=== PATIENT | female | born 1990 | race Caucasian/White ===

== ENCOUNTER 2018-01-29 21:28 | Inpatient (IN) | payer OTHER ==
[~2018-01-29] VITALS: Ht 157.5 cm; Wt 43.0 kg
[2018-01-29] VITALS (8 sets, daily range): BP systolic 79–180; BP diastolic 47–81; PULSE 72–95; RESP 18–24; TEMP 97.9–98.9; O2SAT 85–100
[~2018-01-29 21:28] MED LIST: DEXAMETHASONE SOD PHOS 4 MG/ML VIAL IV ONE; GLYCOPYRROLATE 1 MG/5 ML SYRINGE IV PUSH ONE; KETOROLAC TROMETHAMINE 30 MG/ML (IVP) VIAL IV PUSH ONE; LACTATED RINGER'S 1000 ML INJ 2,000 ML IV ONE; LIDOCAINE HCL 1% PF 5 ML SYRINGE OTHER ONE; NEOSTIGMINE 5 MG/5 ML SYRINGE IV PUSH ONE; ONDANSETRON HCL 4 MG/2 ML VIAL IV PUSH ONE; PHENYLEPH/NS 1000 MCG/10 ML SYR IV ONE; PROPOFOL 200 MG/20 ML AMP IV ONE; ROCURONIUM INJ 50 MG/5 ML SYRINGE IV PUSH ONE; SUCCINYLCHOLINE CHLORIDE 100 MG/5 ML SYRINGE IV PUSH ONE; ceFAZolin INJ 1,000 MG VIAL IV ONE
[2018-01-29] MEDS ORDERED: SODIUM CHLOR 0.9% 1000 ML INJ 1,000 ML IV ONE ×2 (22:30)
[2018-01-29 23:01] LABS: AUTOMATED NEUTROPHIL # 6.7 TH/MM3 (1.8-7.7); BASOPHIL % 0.3 % (0.0-2.0); EOSINOPHIL # 0.3 TH/MM3 (0-0.4); EOSINOPHIL % 3.1 % (0.0-4.0); HEMATOCRIT 23.9 % (35.0-46.0); HEMOGLOBIN 8.2 GM/DL (11.6-15.3); LYMPH % 16.4 % (9.0-44.0); LYMPHOCYTE # 1.5 TH/MM3 (1.0-4.8); MEAN CELL VOLUME 83.7 FL (80.0-100.0); MEAN CORPUSCULAR HEMOGLOBIN 28.7 PG (27.0-34.0); MEAN CORPUSCULAR HGB CONC 34.2 % (32.0-36.0); MEAN PLATELET VOLUME 9.7 FL (7.0-11.0); MONO % 4.3 % (0.0-8.0); MONOCYTE # 0.4 TH/MM3 (0-0.9); NEUT % 75.9 % (16.0-70.0); PLATELET COUNT 181 TH/MM3 (150-450); RED BLOOD COUNT 2.85 MIL/MM3 (4.00-5.30); RED CELL DISTRIBUTION WIDTH 14.3 % (11.6-17.2); WHITE BLOOD COUNT 8.9 TH/MM3 (4.0-11.0)
--- NOTE | 2018-01-29 23:16 | PD ---
HPI Chief Complaint: Abdominal Pain Time Seen by Provider: 22:26 Travel History International Travel<30 days: No Contact w/Intl Traveler<30days: No Traveled to known affect area: No History of Present Illness HPI 27-year-old woman, history is a little bit limited she reports in via EMS for syncope and abdominal pain. By nursing report she is early . She had an ultrasound done about a week or so ago in the emergency department where she was having pain. She reports they could not see the and told her she may have a tubal . They want her return in 2 days proceeding go back. She was feeling better until today when this pain started. She has diffuse abdominal pain at this time. She feels generally unwell. No other complaints. History Past Medical History Narrative Medical 3 previous pregnancies, history of IVDU Tetanus Vaccination: Unknown Influenza Vaccination: No LMP: 3 MONTHS AGO : 4 Para: 3 Social History Alcohol Use: Yes (OCCAS) Tobacco Use: No Allergies-Medications (Allergen,Severity, Reaction): Coded Allergies: No Known Allergies (Unverified , 01/29/18) Reported Meds & Prescriptions Reported Meds & Active Scripts Active No Active Prescriptions or Reported Medications Review of Systems Except as stated in HPI: all other systems reviewed are Neg Physical Exam Narrative GENERAL: Pale ill appearing 27-year-old woman, SKIN: Clammy and pale. HEAD: Atraumatic. Normocephalic. EYES: Pupils equal and round. No scleral icterus. No injection or drainage. ENT: No nasal bleeding or discharge. Mucous membranes pink and moist. NECK: Trachea midline. No JVD. CARDIOVASCULAR: Heart rate slow but rapid. RESPIRATORY: No accessory muscle use. Clear to auscultation. Breath sounds equal bilaterally. GASTROINTESTINAL: Abdomen distended, diffusely tender with peritonitis. MUSCULOSKELETAL: No obvious deformities. No edema. NEUROLOGICAL: Awake and alert. No obvious cranial nerve deficits. Motor grossly within normal limits. Normal speech. PSYCHIATRIC: Appropriate mood and affect; insight and judgment normal. Data Data Last Documented VS Vital Signs Date Time Temp Pulse Resp B/P (MAP) Pulse Ox O2 Delivery O2 Flow Rate FiO2 01/29/18 23:02 86 20 96/65 (75) 97 Room Air 01/29/18 21:51 97.9 Orders Orders Complete Blood Count With Diff (01/29/18 22:01) Comprehensive Metabolic Panel (01/29/18 22:01) Beta Hcg (Quant/Titer) (01/29/18 22:01) Urinalysis - C+S If Indicated (01/29/18 22:01) Iv Access Insert/Monitor (01/29/18 22:01) Type And Screen (01/29/18 22:26) Red Blood Cells (Rbc) (01/29/18 22:26) Ed Poc Ultrasound (01/29/18 ) Sodium Chlor 0.9% 1000 Ml Inj (Ns 1000 M (01/29/18 22:30) Sodium Chlor 0.9% 1000 Ml Inj (Ns 1000 M (01/29/18 22:30) Fentanyl Inj (Fentanyl Inj) (01/29/18 22:45) Chest, Single Ap (01/29/18 ) Admit Order (Ed Use Only) (01/29/18 ) Labs Laboratory Tests Test 01/29/18 22:31 White Blood Count 8.9 TH/MM3 Red Blood Count 2.85 MIL/MM3 Hemoglobin 8.2 GM/DL Hematocrit 23.9 % Mean Corpuscular Volume 83.7 FL Mean Corpuscular Hemoglobin 28.7 PG Mean Corpuscular Hemoglobin Concent 34.2 % Red Cell Distribution Width 14.3 % Platelet Count 181 TH/MM3 Mean Platelet Volume 9.7 FL Neutrophils (%) (Auto) 75.9 % Lymphocytes (%) (Auto) 16.4 % Monocytes (%) (Auto) 4.3 % Eosinophils (%) (Auto) 3.1 % Basophils (%) (Auto) 0.3 % Neutrophils # (Auto) 6.7 TH/MM3 Lymphocytes # (Auto) 1.5 TH/MM3 Monocytes # (Auto) 0.4 TH/MM3 Eosinophils # (Auto) 0.3 TH/MM3 Basophils # (Auto) 0.0 TH/MM3 CBC Comment DIFF FINAL Differential Comment MDM Medical Decision Making Medical Screen Exam Complete: Yes Emergency Medical Condition: Yes Differential Diagnosis Ruptured ectopic, mesenteric ischemia, appendicitis, UTI or sepsis, perforated ulcer, other Narrative Course Medical decision making Called by nursing staff to room due to worsening low blood pressure. My initial assessment patient was ill-appearing, clear tender abdomen. History suggestive of ruptured ectopic. Bedside ultrasound confirms fluid in the abdomen. Patient hypotensive on initial assessment. Difficult IV access due to history of IV drug use. One access initially started. IV fluids ordered and hung. Labs were sent. Called for emergency release blood after bedside ultrasound was performed. Was a large bore central venous catheter for access and resuscitation. 2 units of emergency release blood were started. I called and spoke to the OB hospitalist who came in immediately to the bedside with Dr. Dupree. They will take patient to the operating room. Critical Care Narrative Aggregate critical care time was 40 minutes. Time to perform other separately billable procedures was not included in the critical care time. My time did not include minutes spent treating any other patients simultaneously or on activities that did not directly contribute to the patient's treatment. The services I provided to this patient were to treat and/or prevent clinically significant deterioration that could result in: , hemorrhagic shock, unrecognized ectopic , other. I provided critical care services requiring my management, as noted below: Chart data review, documentation time, medication orders and management, vital sign assessments/reviewing monitor data, ordering and reviewing lab tests, ordering and interpreting/reviewing x-rays and diagnostic studies, care of the patient and discussion of the patient with the admitting physicians. Procedures Procedure Narrative Central line: Emergent central line placed. Procedure was explained to patient and assent was obtained. Areas prepped with chlorhexidine. Using sterile technique and real-time ultrasound guidance, Seldinger technique, a large bore central line was placed in the right IJ without difficulty. Patient tolerated well. Good blood return. Chest x-ray pending. [id number] ultrasound: Focused transabdominal chest performed by me to evaluate for presence of peritoneal fluid. Positive with a large amount of intraperitoneal fluid. Diagnosis Primary Impression: Ruptured ectopic Additional Impression: Hemorrhagic shock Admitting Information Admitting Physician Requests: Admit Scripts No Active Prescriptions or Reported Howies Andrzej Garcia MD Jan 29, 2018 23:16
--- NOTE | 2018-01-29 23:18 | RADRPT ---
EXAM DATE: 01/29/2018 11:15 PM EDT AGE/SEX: 27 years / Female INDICATIONS: Post procedure, and pre-op. Please evaluate for pneumonia, pneumothorax, or any other c ommunicable disease. CLINICAL DATA: This is the patient's initial encounter. Patient reports that signs and symptoms have been present for 1 day and indicates a pain score of Nonresponsive. MEDICAL/SURGICAL HISTORY: Non-responsive. Non-responsive. COMPARISON: No prior exams available for comparison. FINDINGS: A single AP supine portable view the chest was obtained and demonstrates a right internal jugular jesus tral venous line in place. There are no confluent infiltrates or effusions. The heart and mediastinal structures are within normal limits. The soft tissues and bony thorax are unremarkable. CONCLUSION: No acute cardiopulmonary disease. Electronically signed by: Frank Gee MD 01/29/2018 11:16 PM EDT
--- NOTE | 2018-01-29 23:20 | HHI.HP ---
HPI Chief Complaint Abdominal pain, emergent consultation for suspected ruptured ectopic Date Seen: Jan 29, 2018 Time Seen: 23:13 Travel History International Travel<30 Days: No Contact w/Intl Traveler<30Days: No Known Affected Area: No History of Present Illness HPI 27-year-old female who presented to the emergency room with a complaint of abdominal pain and concern that she has an ectopic . She reports having been seen in the [place] area 1 week ago for abdominal pain and was told she had a of undetermined location. She was told to follow-up for additional testing in 2 days but she failed to do this. She began having severe abdominal pain earlier this evening. Initial evaluation in the emergency room demonstrated a hypotensive patient with blood pressure 70/30. [id number] ultrasound demonstrated what appeared to be massive hemoperitoneum and a fast examination confirmed intraperitoneal blood. History Past Medical History Narrative Medical History of cocaine abuse with her last use reported as July 2017 Obstetric History Obstetric History 3 prior C-sections Past Surgical History Narrative Surgical 3 prior C-sections, appendectomy Family History Family History: Negative Social History Alcohol Use: Yes Tobacco Use: No Substance Abuse: Yes (History of cocaine use) Allergies-Medications (Allergen,Severity, Reaction): Coded Allergies: No Known Allergies (Unverified , 01/29/18) Home Meds No Active Prescriptions or Reported Meds Review of Systems HENT: Lightheadedness Gastrointestinal: Abdominal Pain Physical Exam Vital Signs Date Time Temp Pulse Resp B/P (MAP) Pulse Ox O2 Delivery O2 Flow Rate FiO2 01/29/18 23:02 86 20 96/65 (75) 97 Room Air 01/29/18 22:59 18 96/63 100 01/29/18 22:56 18 93/55 01/29/18 22:10 77 20 79/52 (61) 93 Room Air 01/29/18 21:51 97.9 72 19 83/47 (59) 99 Narrative GENERAL: Thin white female complaining of abdominal pain SKIN: Cool and dry. HEAD: Normocephalic and atraumatic. EYES: No scleral icterus. No injection or drainage. ENT: No nasal drainage noted. Mucous membranes pink. Airway patent. NECK: Supple, trachea midline. No JVD. CARDIOVASCULAR: Regular rate and rhythm without murmurs, gallops, or rubs. RESPIRATORY: Breath sounds equal bilaterally. No accessory muscle use. ABDOMEN/GI: Abdomen is rigid with guarding and rebound, [id number] ultrasound demonstrates a large volume of free fluid in the abdomen Gravid to [-] weeks size Fundal Height: [-] GENITOURINARY: EXTREMITIES: No cyanosis or edema, pale nailbeds BACK: Nontender without obvious deformity. No CVA tenderness. NEUROLOGICAL: Awake and alert. Motor and sensory grossly within normal limits. Five out of 5 muscle strength in all muscle groups. Normal speech. Caprini VTE Risk Assessment Caprini VTE Risk Assessment: No/Low Risk (score <= 1) VTE Pharm Contraindication: Hemorrhage Caprini Risk Assessment Model Point Value = 1 Point Value = 2 Point Value = 3 Point Value = 5 Age 41-60 Minor surgery BMI > 25 kg/m2 Swollen legs Varicose veins or History of unexplained or recurrent spontaneous Oral contraceptives or hormone replacement Sepsis (< 1 month) Serious lung disease, including pneumonia (< 1 month) Abnormal pulmonary function Acute myocardial infarction Congestive heart failure (< 1 month) History of inflammatory bowel disease Medical patient at bed rest Age 61-74 Arthroscopic surgery Major open surgery (> 45 min) Laparoscopic surgery (> 45 min) Malignancy Confined to bed (> 72 hours) Immobilizing plaster cast Central venous access Age >= 75 History of VTE Family history of VTE Factor V Leiden Prothrombin [id number] Lupus anticoagulant Anticardiolipin antibodies Elevated serum homocysteine Heparin-induced thrombocytopenia Other congenital or acquired thrombophilia Stroke (< 1 month) Elective arthroplasty Hip, pelvis, or leg fracture Acute spinal cord injury (< 1 month) Prophylaxis Regimen Total Risk Factor Score Risk Level Prophylaxis Regimen 0-1 Low Early ambulation 2 Moderate Order ONE of the following: *Sequential Compression Device (SCD) *Heparin 5000 units SQ BID 3-4 Higher Order ONE of the following medications: *Heparin 5000 units SQ TID *Enoxaparin/Lovenox 40 mg SQ daily (WT < 150 kg, CrCl > 30 mL/min) *Enoxaparin/Lovenox 30 mg SQ daily (WT < 150 kg, CrCl > 10-29 mL/min) *Enoxaparin/Lovenox 30 mg SQ BID (WT < 150 kg, CrCl > 30 mL/min) AND/OR *Sequential Compression Device (SCD) 5 or more Highest Order ONE of the following medications: *Heparin 5000 units SQ TID (Preferred with Epidurals) *Enoxaparin/Lovenox 40 mg SQ daily (WT < 150 kg, CrCl > 30 mL/min) *Enoxaparin/Lovenox 30 mg SQ daily (WT < 150 kg, CrCl > 10-29 mL/min) *Enoxaparin/Lovenox 30 mg SQ BID (WT < 150 kg, CrCl > 30 mL/min) AND *Sequential Compression Device (SCD) Data Data Vital Signs Reviewed: Yes Orders Orders Complete Blood Count With Diff (01/29/18 22:01) Comprehensive Metabolic Panel (01/29/18 22:01) Beta Hcg (Quant/Titer) (01/29/18 22:01) Urinalysis - C+S If Indicated (01/29/18 22:01) Iv Access Insert/Monitor (01/29/18 22:01) Type And Screen (01/29/18 22:26) Red Blood Cells (Rbc) (01/29/18 22:26) Ed Poc Ultrasound (01/29/18 ) Sodium Chlor 0.9% 1000 Ml Inj (Ns 1000 M (01/29/18 22:30) Sodium Chlor 0.9% 1000 Ml Inj (Ns 1000 M (01/29/18 22:30) Fentanyl Inj (Fentanyl Inj) (01/29/18 22:45) Chest, Single Ap (01/29/18 ) Admit Order (Ed Use Only) (01/29/18 ) Labs Laboratory Tests Test 01/29/18 22:31 White Blood Count 8.9 Red Blood Count 2.85 Hemoglobin 8.2 Hematocrit 23.9 Mean Corpuscular Volume 83.7 Mean Corpuscular Hemoglobin 28.7 Mean Corpuscular Hemoglobin Concent 34.2 Red Cell Distribution Width 14.3 Platelet Count 181 Mean Platelet Volume 9.7 Neutrophils (%) (Auto) 75.9 Lymphocytes (%) (Auto) 16.4 Monocytes (%) (Auto) 4.3 Eosinophils (%) (Auto) 3.1 Basophils (%) (Auto) 0.3 Neutrophils # (Auto) 6.7 Lymphocytes # (Auto) 1.5 Monocytes # (Auto) 0.4 Eosinophils # (Auto) 0.3 Basophils # (Auto) 0.0 CBC Comment DIFF FINAL Differential Comment Assessment/Plan Assessment and Plan Assessment: Likely ruptured ectopic with hypovolemia Plan: Emergency release transfusion of O- blood. Consent was obtained for laparotomy and treatment as indicated for suspected ruptured ectopic . Andrzej Camacho MD Jan 29, 2018 23:20
[2018-01-29] MEDS ORDERED: KETAMINE HCL 50 MG/5 ML SYRINGE ONE (23:27)
[2018-01-29 23:37] LABS: ALBUMIN 2.7 GM/DL (3.4-5.0); ALT (GPT) 26 U/L (10-53); AST (GOT) 10 U/L (15-37); BICARBONATE 23.4 MEQ/L (21.0-32.0); BLOOD UREA NITROGEN 11 MG/DL (7-18); CALCIUM 8.1 MG/DL (8.5-10.1); CHLORIDE 105 MEQ/L (98-107); CREATININE 0.68 MG/DL (0.50-1.00); GLOMERULAR FILTRATION RATE 104 ML/MIN (>89); GLUCOSE,RANDOM 120 MG/DL (74-106); SODIUM (NA) 139 MEQ/L (136-145)
[2018-01-29 23:55] LABS: ALKALINE PHOSPHATASE 46 U/L (45-117); TOTAL BILIRUBIN ADULT 0.2 MG/DL (0.2-1.0); TOTAL PROTEIN 6.1 GM/DL (6.4-8.2)
[2018-01-30] MEDS ORDERED: fentaNYL CITRATE 250 MCG/5 ML AMP ONE (00:12)
[2018-01-30] MEDS ORDERED: ACETAMINOPHEN 1000 MG/100 ML 100 ML IV ONE (00:12)
[2018-01-30 00:42] LABS: AUTOMATED NEUTROPHIL # 8.3 TH/MM3 (1.8-7.7); BASOPHIL % 0.1 % (0.0-2.0); EOSINOPHIL % 0.4 % (0.0-4.0); HEMATOCRIT 27.6 % (35.0-46.0); HEMOGLOBIN 9.2 GM/DL (11.6-15.3); LYMPH % 7.2 % (9.0-44.0); LYMPHOCYTE # 0.7 TH/MM3 (1.0-4.8); MEAN CELL VOLUME 85.5 FL (80.0-100.0); MEAN CORPUSCULAR HEMOGLOBIN 28.4 PG (27.0-34.0); MEAN CORPUSCULAR HGB CONC 33.2 % (32.0-36.0); MEAN PLATELET VOLUME 8.8 FL (7.0-11.0); MONO % 3.6 % (0.0-8.0); MONOCYTE # 0.3 TH/MM3 (0-0.9); NEUT % 88.7 % (16.0-70.0); PLATELET COUNT 160 TH/MM3 (150-450); RED BLOOD COUNT 3.23 MIL/MM3 (4.00-5.30); WHITE BLOOD COUNT 9.4 TH/MM3 (4.0-11.0)
[2018-01-30] MEDS ORDERED: DO NOT ADM ANY ANTICOAGULANT DRUGS PRN (01:00)
[2018-01-30] MEDS ORDERED: LORazepam 2 MG/ML VIAL IV SCH (01:00)
[2018-01-30] MEDS ORDERED: SODIUM CHLORIDE 0.9% FLUSH 10 ML FLUSH IV FLUSH PRN (01:15)
[2018-01-30] MEDS ORDERED: LORazepam 2 MG/ML VIAL IV PRN (01:15)
[2018-01-30] MEDS ORDERED: diphenhydrAMINE HCL 25 MG CAP PO PRN (01:15)
[2018-01-30] MEDS ORDERED: LORazepam 2 MG/ML VIAL ONE (01:26)
[2018-01-30 03:03] VITALS: BP 97/58; PULSE 73; RESP 18; TEMP 98.1; O2SAT 97
[2018-01-30 08:00] VITALS: BP 99/58; PULSE 77; RESP 20; TEMP 98.6; O2SAT 97
[2018-01-30] MEDS: SODIUM CHLORIDE 0.9% FLUSH 10 ML FLUSH IV FLUSH SCH ×2 (09:00→20:15)
--- NOTE | 2018-01-30 10:21 | MP ---
cc: Sanford Mathew MD DATE OF OPERATION: PROCEDURE PERFORMED: Laparotomy with partial salpingectomy, left fallopian tube for a left ectopic . PREOPERATIVE DIAGNOSIS: Hemorrhagic shock, ruptured ectopic. POSTOPERATIVE DIAGNOSIS: Hemorrhagic shock, ruptured ectopic, including a left ectopic . SURGEON: Sanford Mathew MD ANESTHESIA: General. ESTIMATED BLOOD LOSS: 1000 mL of a hemoperitoneum, 100 mL blood loss in the operating room. COMPLICATIONS: None. FINDINGS: The patient had a left fimbriated end ectopic and bowel adhesions and uterus, which was completely stuck to the anterior abdominal wall. PROCEDURE IN DETAIL: After informed consent, the patient was taken to the operating room where she was placed under general anesthesia, placed in supine position. Abdomen was prepped and draped in normal sterile fashion. Bladder was drained with a Bravo catheter. Once a timeout was taken for the laparotomy and we decided we needed to evaluate the pelvis with a laparoscope, we placed laparoscope through the umbilicus. Once we evaluated the umbilicus, we noted the adhesions from either the ruptured appendix that she had previously had or from 3 previous C-sections. She had a uterus which was stuck to the anterior abdominal wall, omentum which was adherent all the way down to small bowel, was adherent to the anterior abdominal wall. At this point, we performed a laparotomy going through the old Pfannenstiel skin incision, carefully dissecting through the fascia, through the rectus muscle and down to a thickened peritoneum. We then entered the abdomen carefully and was right at the fundus of the uterus, which was adherent up on the anterior abdominal wall, completely from the fundus to the cervix. A Bravo bulb could be felt below the cervix intra-abdominally. The small bowel adhesions were taken down along with the omental adhesions. At this point, there was an ectopic in the omentum. This is where it was adherent to the fimbriated end and boarded out of the end of the fallopian tube. The fallopian tube was actively bleeding despite pressure. Despite cautery, we could not control the bleeding and the decision was made to remove the left distal portion of the tube. This was done with a Ayanna clamp. Good hemostasis was achieved and all bright red bleeding stopped. At this point, we had about 1000 mL of blood in the abdomen, it was free. We had to remove all of that blood from the abdomen, carefully removing blood and cleaning out the posterior cul-de-sac. Survey of the right side revealed a normal fallopian tube and ovary, although there were some adhesions. The left fallopian tube was partially removed and the ovary was stuck to the anterior abdominal wall, along with the uterus. This was partially taken down. The loop of small bowel was stuck to the ovary. This was taken down also. The adhesions of the omentum and the bowel was taken down off the anterior abdominal wall. Good hemostasis was achieved in all dissection. The omentum was not bleeding with the ectopic removed from the omentum with a small amount of partial omentectomy. Good hemostasis was achieved. All lap and instruments were removed from the abdomen after the abdomen was copiously irrigated. At this point, the rectus muscle had to be brought back together slightly. The fascia was closed with 0 Vicryl suture. The skin was closed with 4-0 Monocryl. The patient tolerated the procedure well. She was taken to recovery room in stable condition. Lap and instrument counts were reported as correct. FINAL DIAGNOSES: Left ectopic in the fimbriated end that aborted out and was in the omentum. Active bleeding from the fimbriated end required a partial salpingectomy. MD YONAS Lehman/BARNDT , 01:14 AM , 10:19 AM
[2018-01-30 12:00] VITALS: BP 97/57; PULSE 72; RESP 18; TEMP 98.4; O2SAT 99
[2018-01-30 12:17] LABS: AUTOMATED NEUTROPHIL # 6.9 TH/MM3 (1.8-7.7); BASOPHIL % 0.1 % (0.0-2.0); HEMATOCRIT 28.8 % (35.0-46.0); HEMOGLOBIN 9.7 GM/DL (11.6-15.3); LYMPH % 8.6 % (9.0-44.0); LYMPHOCYTE # 0.7 TH/MM3 (1.0-4.8); MEAN CELL VOLUME 82.9 FL (80.0-100.0); MEAN CORPUSCULAR HEMOGLOBIN 28.1 PG (27.0-34.0); MEAN CORPUSCULAR HGB CONC 33.9 % (32.0-36.0); MEAN PLATELET VOLUME 9.4 FL (7.0-11.0); MONOCYTE # 0.5 TH/MM3 (0-0.9); NEUT % 85.3 % (16.0-70.0); PLATELET COUNT 167 TH/MM3 (150-450); RED BLOOD COUNT 3.47 MIL/MM3 (4.00-5.30); RED CELL DISTRIBUTION WIDTH 14.6 % (11.6-17.2); WHITE BLOOD COUNT 8.1 TH/MM3 (4.0-11.0)
--- NOTE | 2018-01-30 13:22 | HHI.OB ---
Subjective Post Operative Day: 1 Remarks doing well Objective Vitals/I&O Vital Signs Date Time Temp Pulse Resp B/P (MAP) Pulse Ox O2 Delivery O2 Flow Rate FiO2 01/30/18 08:00 98.6 77 20 99/58 (72) 97 01/30/18 03:03 98.1 73 18 97/58 (71) 97 01/30/18 02:30 73 15 96/57 (70) 96 Room Air 01/30/18 02:15 73 14 101/60 (74) 96 Room Air 01/30/18 02:00 98.0 69 15 98/62 (74) 96 Room Air 01/30/18 01:45 71 13 103/63 (76) 97 Room Air 01/30/18 01:30 75 12 103/65 (78) 99 Room Air 01/30/18 01:15 92 14 112/77 (89) 98 Room Air 01/30/18 01:06 98.4 88 14 117/62 (80) 97 Room Air 01/29/18 23:16 98.4 91 20 153/69 100 01/29/18 23:15 89 20 153/69 (97) 100 Room Air 01/29/18 23:02 86 20 96/65 (75) 97 Room Air 01/29/18 22:59 18 96/63 100 01/29/18 22:56 18 93/55 01/29/18 22:10 77 20 79/52 (61) 93 Room Air 01/29/18 21:51 97.9 72 19 83/47 (59) 99 01/29/18 20:00 98.9 95 24 180/81 (114) 85 Intake & Output 01/30/18 01/30/18 07:00 19:00 Intake Total 3050 ml Output Total 2200 ml Balance 850 ml Intake IV Total 2000 ml Packed Cells 800 ml Blood Product IV Normal Saline Flush 250 ml Output Urine Total 1200 ml Estimated Blood Loss 1000 ml Result Diagram: 01/30/18 1108 01/29/182230 Objective Remarks GENERAL: Well-nourished, well-developed patient. CARDIOVASCULAR: Regular rate and rhythm without murmurs, gallops, or rubs. RESPIRATORY: Breath sounds equal bilaterally. No accessory muscle use. ABDOMEN/GI: Abdomen soft, non-tender, bowel sounds present. Incision: Clean, dry and intact. Fundus: Firm, non-tender at umbilicus. GENITOURINARY: Light to moderate bleeding. EXTREMITIES: No cyanosis or edema, non-tender, without signs of DVT. Medications and IVs Current Medications Medications (Trade) Dose Ordered Sig/Val Route Start Time Stop Time Status Last Admin (NS Flush) 2 ml UNSCH PRN IV FLUSH 01/30/18 01:15 (NS Flush) 2 ml BID IV FLUSH 01/30/18 09:00 (Percocet 5-325 Mg) 1 tab Q4H PRN PO 01/30/18 01:15 (Percocet 5-325 Mg) 2 tab Q4H PRN PO 01/30/18 01:15 (Dilaudid Pf Inj) 1 mg Q4H PRN IV 01/30/18 01:15 (Benadryl) 25 mg Q6H PRN PO 01/30/18 01:15 (Zofran Odt) 4 mg Q6H PRN PO 01/30/18 01:15 ([facility] [place] [facility] [place] ALL NURSING DEPARTME... UNSCH PRN .XX 01/30/18 01:00 01/31/18 00:59 Assessment/Plan Problem List: (1) Ruptured ectopic ICD Codes: O00.90 - Unspecified ectopic without intrauterine Status: Acute Assessment and Plan post op. Sanford Mathew MD Jan 30, 2018 13:22
[2018-01-30] MEDS: oxyCODONE/ACETAMINOPHEN 5 MG/325 MG TAB PO PRN ×2 (13:44→20:15)
[2018-01-30 16:00] VITALS: BP 111/62; PULSE 85; RESP 20; TEMP 99.2; O2SAT 97
[2018-01-30] MEDS: HYDROmorphone HCL PF 2 MG/ML VIAL IV PRN (16:29)
[2018-01-30 20:00] VITALS: BP 103/57; PULSE 90; RESP 18; TEMP 98.6; O2SAT 98
[2018-01-31] VITALS: BP 100/56; PULSE 74; RESP 18; TEMP 99; O2SAT 98
[2018-01-31] MEDS: oxyCODONE/ACETAMINOPHEN 5 MG/325 MG TAB PO PRN ×4 (02:12→23:08)
[2018-01-31 08:00] VITALS: BP 104/68; PULSE 89; RESP 15; TEMP 98.5; O2SAT 98
[2018-01-31] MEDS: SODIUM CHLORIDE 0.9% FLUSH 10 ML FLUSH IV FLUSH SCH ×2 (09:04→20:51)
[2018-01-31] MEDS: HYDROmorphone HCL PF 2 MG/ML VIAL IV PRN ×2 (10:19→15:34)
[2018-01-31 11:30] VITALS: BP 116/68; PULSE 75; RESP 15; TEMP 97.7; O2SAT 98
[2018-01-31] MEDS: ONDANSETRON ODT 4 MG TAB PO PRN (13:41)
--- NOTE | 2018-01-31 17:47 | HHI.OB ---
Subjective Post Operative Day: 2 Remarks doing well. Voiding and ambulating but not passing flatus or BM Objective Vitals/I&O Vital Signs Date Time Temp Pulse Resp B/P (MAP) Pulse Ox O2 Delivery O2 Flow Rate FiO2 01/31/18 00:00 99.0 74 18 100/56 (71) 98 01/30/18 20:00 98.6 90 18 103/57 (72) 98 01/30/18 20:00 98.6 90 18 103/57 (72) 98 Intake & Output 01/31/18 01/31/18 07:00 19:00 Intake Total 360 ml Output Total 875 ml Balance -515 ml Intake Oral 360 ml Output Urine Total 875 ml Stool Total 0 ml Result Diagram: 01/30/18 1108 01/29/181 Objective Remarks GENERAL: Well-nourished, well-developed patient. CARDIOVASCULAR: Regular rate and rhythm without murmurs, gallops, or rubs. RESPIRATORY: Breath sounds equal bilaterally. No accessory muscle use. ABDOMEN/GI: Abdomen soft, non-tender, bowel sounds present. Incision: Clean, dry and intact. Fundus: Firm, non-tender at umbilicus. GENITOURINARY: Light to moderate bleeding. EXTREMITIES: No cyanosis or edema, non-tender, without signs of DVT. Medications and IVs Current Medications Medications (Trade) Dose Ordered Sig/Val Route Start Time Stop Time Status Last Admin (NS Flush) 2 ml UNSCH PRN IV FLUSH 01/30/18 01:15 (NS Flush) 2 ml BID IV FLUSH 01/30/18 09:00 01/31/18 09:04 (Percocet 5-325 Mg) 1 tab Q4H PRN PO 01/30/18 01:15 01/31/18 13:42 (Percocet 5-325 Mg) 2 tab Q4H PRN PO 01/30/18 01:15 01/31/18 09:01 (Dilaudid Pf Inj) 1 mg Q4H PRN IV 01/30/18 01:15 01/31/18 15:34 (Benadryl) 25 mg Q6H PRN PO 01/30/18 01:15 (Zofran Odt) 4 mg Q6H PRN PO 01/30/18 01:15 01/31/18 13:41 Assessment/Plan Problem List: (1) Ruptured ectopic ICD Codes: O00.90 - Unspecified ectopic without intrauterine Status: Acute Assessment and Plan post op. faint BS today regular diet when passing flatus, She will probably DC in AM Sanford Mathew MD Jan 31, 2018 17:47
[2018-01-31 19:28] VITALS: BP 117/82; PULSE 87; RESP 18; TEMP 97.9; O2SAT 97
[2018-01-31 23:10] VITALS: BP 124/66; PULSE 86; RESP 18; TEMP 97.6; O2SAT 100
[2018-02-01] MEDS: HYDROmorphone HCL PF 2 MG/ML VIAL IV PRN ×3 (02:05→14:37)
[2018-02-01 04:43] VITALS: BP 103/74; PULSE 74; RESP 18; TEMP 98; O2SAT 100
[2018-02-01] MEDS: oxyCODONE/ACETAMINOPHEN 5 MG/325 MG TAB PO PRN ×3 (06:25→20:33)
[2018-02-01] MEDS ORDERED: OXYC1TAB63 PO (07:25)
[2018-02-01 08:00] VITALS: BP 99/58; PULSE 67; RESP 18; TEMP 97.9; O2SAT 95
[2018-02-01] MEDS: SODIUM CHLORIDE 0.9% FLUSH 10 ML FLUSH IV FLUSH SCH ×2 (08:10→20:34)
--- NOTE | 2018-02-01 09:52 | HHI.OB ---
Subjective Post Operative Day: 3 Remarks doing well, no flatus and tolerating clears Objective Vitals/I&O Vital Signs Date Time Temp Pulse Resp B/P (MAP) Pulse Ox O2 Delivery O2 Flow Rate FiO2 02/01/18 08:00 97.9 67 18 99/58 (72) 95 02/01/18 04:43 98.0 74 18 103/74 (84) 100 01/31/18 23:10 97.6 86 18 124/66 (85) 100 01/31/18 19:28 97.9 87 18 117/82 (94) 97 01/31/18 11:30 97.7 75 15 116/68 (84) 98 Intake & Output 02/01/18 02/01/18 07:00 19:00 Intake Total 360 ml Balance 360 ml Intake Oral 360 ml # Voids 2 # Bowel Movements 0 Result Diagram: 01/30/18 1108 01/29/18 7131 Objective Remarks GENERAL: Well-nourished, well-developed patient. CARDIOVASCULAR: Regular rate and rhythm without murmurs, gallops, or rubs. RESPIRATORY: Breath sounds equal bilaterally. No accessory muscle use. ABDOMEN/GI: Abdomen soft, non-tender, bowel sounds present. no flatus Incision: Clean, dry and intact. Fundus: Firm, non-tender at umbilicus. GENITOURINARY: Light to moderate bleeding. EXTREMITIES: No cyanosis or edema, non-tender, without signs of DVT. Medications and IVs Current Medications Medications (Trade) Dose Ordered Sig/Val Route Start Time Stop Time Status Last Admin (NS Flush) 2 ml UNSCH PRN IV FLUSH 01/30/18 01:15 (NS Flush) 2 ml BID IV FLUSH 01/30/18 09:00 02/01/18 08:10 (Percocet 5-325 Mg) 1 tab Q4H PRN PO 01/30/18 01:15 01/31/18 13:42 (Percocet 5-325 Mg) 2 tab Q4H PRN PO 01/30/18 01:15 02/01/18 06:25 (Dilaudid Pf Inj) 1 mg Q4H PRN IV 01/30/18 01:15 02/01/18 08:10 (Benadryl) 25 mg Q6H PRN PO 01/30/18 01:15 (Zofran Odt) 4 mg Q6H PRN PO 01/30/18 01:15 01/31/18 13:41 Assessment/Plan Problem List: (1) Ruptured ectopic ICD Codes: O00.90 - Unspecified ectopic without intrauterine Status: Acute Assessment and Plan post op. faint BS today regular diet when passing flatus, She will probably DC in AM Sanford Mathew MD Feb 01, 2018 09:52
[2018-02-01 12:00] VITALS: BP 104/72; PULSE 72; RESP 17; TEMP 98.2; O2SAT 94
[2018-02-01 16:15] VITALS: BP 108/60; PULSE 86; RESP 18; TEMP 98.4; O2SAT 94
[2018-02-01] MEDS: ONDANSETRON ODT 4 MG TAB PO PRN (18:19)
[2018-02-01 20:10] VITALS: BP 119/70; PULSE 73; RESP 16; TEMP 98.4; O2SAT 96
--- NOTE | 2018-02-01 20:38 | HHI.DCPOC ---
Discharge Care Plan Diagnosis: (1) Hemorrhagic shock Report Symptoms to Your Doctor -Temperature above 100.5 degrees -Redness, of incision or excessive or foul smelling drainage -Unusual pain or calf pain -Increased vaginal bleeding -Painful or difficulty urinating -Feelings of extreme sadness or anxiety after 2 weeks Goals to Promote Your Health * To prevent worsening of your condition and complications * To maintain your health at the optimal level Directions to Meet Your Goals Take your medications as prescribed Follow your dietary instruction Follow activity as directed Ensure plenty of rest for recovery Drink fluids for hydration Keep your appointments as scheduled Take your immunizations and boosters as scheduled If your symptoms worsen call your PCP, if no PCP go to Urgent Care Center or Emergency Room Smoking is Dangerous to Your Health. Avoid second hand smoke Call the 24-hour crisis hotline for domestic abuse at Sanford Mathew MD Feb 01, 2018 20:38
[2018-02-01 23:30] VITALS: BP_SYST 113; BP_SYST 128; BP_DIAS 69; BP_DIAS 81; PULSE 77; PULSE 95; RESP 16; RESP 17; TEMP 98.2; TEMP 98.6; O2SAT 94; O2SAT 97
[2018-02-02] MEDS: oxyCODONE/ACETAMINOPHEN 5 MG/325 MG TAB PO PRN ×2 (04:18→20:40)
[2018-02-02 04:30] VITALS: BP 117/67; PULSE 82; RESP 16; TEMP 98.6; O2SAT 96
--- NOTE | 2018-02-02 06:38 | HHI.OB ---
Subjective Post Operative Day: 4 Remarks slow return to bowel function, Can feel bowel rumbling but no flatus, Ambulating in dykes, voiding on clears no nausea Objective Vitals/I&O Vital Signs Date Time Temp Pulse Resp B/P (MAP) Pulse Ox O2 Delivery O2 Flow Rate FiO2 02/01/18 23:30 98.2 77 17 128/81 (97) 97 02/01/18 20:10 98.4 73 16 119/70 (86) 96 02/01/18 16:15 98.4 86 18 108/60 (76) 94 02/01/18 12:00 98.2 72 17 104/72 (83) 94 02/01/18 08:00 97.9 67 18 99/58 (72) 95 Result Diagram: 01/30/18 1108 01/29/186 Objective Remarks GENERAL: Well-nourished, well-developed patient. CARDIOVASCULAR: Regular rate and rhythm without murmurs, gallops, or rubs. RESPIRATORY: Breath sounds equal bilaterally. No accessory muscle use. ABDOMEN/GI: Abdomen soft, tender on left post op, bowel sounds present. no flatus Incision: Clean, dry and intact. GENITOURINARY: Light to moderate bleeding. EXTREMITIES: No cyanosis or edema, non-tender, without signs of DVT. Medications and IVs Current Medications Medications (Trade) Dose Ordered Sig/Val Route Start Time Stop Time Status Last Admin (NS Flush) 2 ml UNSCH PRN IV FLUSH 01/30/18 01:15 (NS Flush) 2 ml BID IV FLUSH 01/30/18 09:00 02/01/18 20:34 (Percocet 5-325 Mg) 1 tab Q4H PRN PO 01/30/18 01:15 02/02/18 04:18 (Percocet 5-325 Mg) 2 tab Q4H PRN PO 01/30/18 01:15 02/01/18 20:33 (Dilaudid Pf Inj) 1 mg Q4H PRN IV 01/30/18 01:15 02/01/18 14:37 (Benadryl) 25 mg Q6H PRN PO 01/30/18 01:15 (Zofran Odt) 4 mg Q6H PRN PO 01/30/18 01:15 02/01/18 18:19 Assessment/Plan Problem List: (1) Ruptured ectopic ICD Codes: O00.90 - Unspecified ectopic without intrauterine Status: Acute Assessment and Plan post op. faint BS today regular diet when passing flatus, She will probably DC in AM or today if passes gas today Sanford Mathew MD Feb 02, 2018 06:38
[2018-02-02] MEDS ORDERED: GLYCERIN ADULT 2 GM SUPP RECTAL ONE (06:45)
[2018-02-02 08:00] VITALS: BP 102/60; PULSE 77; RESP 18; TEMP 98.1; O2SAT 96
[2018-02-02] MEDS: HYDROmorphone HCL PF 2 MG/ML VIAL IV PRN ×2 (09:03→14:38)
[2018-02-02] MEDS: SODIUM CHLORIDE 0.9% FLUSH 10 ML FLUSH IV FLUSH SCH ×2 (09:06→21:00)
[2018-02-02 12:00] VITALS: BP 109/75; PULSE 74; RESP 18; TEMP 98; O2SAT 97
[2018-02-02 13:48] LABS: AUTOMATED NEUTROPHIL # 3.5 TH/MM3 (1.8-7.7); BASOPHIL % 0.2 % (0.0-2.0); EOSINOPHIL # 0.4 TH/MM3 (0-0.4); EOSINOPHIL % 7.6 % (0.0-4.0); HEMATOCRIT 31.2 % (35.0-46.0); HEMOGLOBIN 10.3 GM/DL (11.6-15.3); LYMPH % 17.3 % (9.0-44.0); LYMPHOCYTE # 0.9 TH/MM3 (1.0-4.8); MEAN CELL VOLUME 84.9 FL (80.0-100.0); MEAN CORPUSCULAR HEMOGLOBIN 28.1 PG (27.0-34.0); MEAN CORPUSCULAR HGB CONC 33.1 % (32.0-36.0); MEAN PLATELET VOLUME 8.2 FL (7.0-11.0); MONO % 6.6 % (0.0-8.0); MONOCYTE # 0.3 TH/MM3 (0-0.9); NEUT % 68.3 % (16.0-70.0); PLATELET COUNT 224 TH/MM3 (150-450); RED BLOOD COUNT 3.68 MIL/MM3 (4.00-5.30); RED CELL DISTRIBUTION WIDTH 14.6 % (11.6-17.2); WHITE BLOOD COUNT 5.1 TH/MM3 (4.0-11.0)
[2018-02-02] MEDS: ONDANSETRON ODT 4 MG TAB PO PRN (14:37)
[2018-02-02 16:00] VITALS: BP 115/64; PULSE 71; RESP 18; TEMP 98; O2SAT 100
[2018-02-02 20:45] VITALS: BP 108/69; PULSE 81; RESP 16; TEMP 98.8; O2SAT 96
[2018-02-03 00:50] VITALS: BP 125/71; PULSE 80; RESP 16; TEMP 98.6; O2SAT 95
[2018-02-03] MEDS: oxyCODONE/ACETAMINOPHEN 5 MG/325 MG TAB PO PRN ×4 (00:55→19:39)
--- NOTE | 2018-02-03 06:38 | HHI.OB ---
Subjective Post Operative Day: 4 Remarks doing well now eating regular diet and passing gas and had BM(loose) Objective Vitals/I&O Vital Signs Date Time Temp Pulse Resp B/P (MAP) Pulse Ox O2 Delivery O2 Flow Rate FiO2 02/03/18 00:50 98.6 80 16 125/71 (89) 95 02/02/18 20:45 98.8 81 16 108/69 (82) 96 02/02/18 16:00 98.0 71 18 115/64 (81) 100 02/02/18 12:00 98.0 74 18 109/75 (86) 97 02/02/18 08:00 98.1 77 18 102/60 (74) 96 Intake & Output 02/03/18 02/03/18 07:00 19:00 Intake Total 720 ml Balance 720 ml Intake Oral 720 ml # Voids 3 # Bowel Movements 0 Result Diagram: 02/02/18 1240 Objective Remarks GENERAL: Well-nourished, well-developed patient. CARDIOVASCULAR: Regular rate and rhythm without murmurs, gallops, or rubs. RESPIRATORY: Breath sounds equal bilaterally. No accessory muscle use. ABDOMEN/GI: Abdomen soft, tender on left post op, bowel sounds present. Incision: Clean, dry and intact.pain less GENITOURINARY: Light to moderate bleeding. EXTREMITIES: No cyanosis or edema, non-tender, without signs of DVT. Medications and IVs Current Medications Medications (Trade) Dose Ordered Sig/Val Route Start Time Stop Time Status Last Admin (NS Flush) 2 ml UNSCH PRN IV FLUSH 01/30/18 01:15 (NS Flush) 2 ml BID IV FLUSH 01/30/18 09:00 02/02/18 21:00 (Percocet 5-325 Mg) 1 tab Q4H PRN PO 01/30/18 01:15 02/02/18 04:18 (Percocet 5-325 Mg) 2 tab Q4H PRN PO 01/30/18 01:15 02/03/18 00:55 (Dilaudid Pf Inj) 1 mg Q4H PRN IV 01/30/18 01:15 02/02/18 14:38 (Benadryl) 25 mg Q6H PRN PO 01/30/18 01:15 (Zofran Odt) 4 mg Q6H PRN PO 01/30/18 01:15 02/02/18 14:37 Assessment/Plan Problem List: (1) Ruptured ectopic ICD Codes: O00.90 - Unspecified ectopic without intrauterine Status: Acute Assessment and Plan Post op day #4 dc home follow up 2 weeks Sanford Mathew MD Feb 03, 2018 06:38
--- NOTE | 2018-02-03 06:40 | HHI.DS ---
Admission Date Jan 29, 2018 at 23:00 Discharge Date: Feb 03, 2018 Admitting Diagnosis Ruptured ectopic , hemorrhagic shock Diagnosis: (1) Ruptured ectopic ICD Codes: O00.90 - Unspecified ectopic without intrauterine Status: Acute (2) Hemorrhagic shock ICD Codes: R57.8 - Other shock Status: Acute Brief History 27-year-old female who presented to the emergency room with a complaint of abdominal pain and concern that she has an ectopic . She reports having been seen in the [place] area 1 week ago for abdominal pain and was told she had a of undetermined location. She was told to follow-up for additional testing in 2 days but she failed to do this. She began having severe abdominal pain earlier this evening. Initial evaluation in the emergency room demonstrated a hypotensive patient with blood pressure 70/30. [id number] ultrasound demonstrated what appeared to be massive hemoperitoneum and a fast examination confirmed intraperitoneal blood. Hospital Course Patient remained with sow return of flatus ready for DC home today with BM yesterday and tolerating regular diet Pt Condition on Discharge: Good Discharge Disposition: Discharge Home Discharge Instructions Diet Instructions: As Tolerated, No Restrictions Activities You Can Perform: Pelvic Rest Activities to Avoid: Driving for 24 hrs Follow up Referrals: [facility] - 2 Weeks @ [facility] with Sanford Mathew MD New Medications: Oxycodone HCl/Acetaminophen (Oxycodone-Acetaminophen 5-325) 5 Mg-325 Mg Tablet 2 TAB PO Q4H PRN for PAIN SCALE 6 TO 10, #30 TAB Sanford Mathew MD Feb 03, 2018 06:40
[2018-02-03 08:00] VITALS: BP 112/55; PULSE 58; RESP 16; TEMP 98.1; O2SAT 96
[2018-02-03] MEDS: SODIUM CHLORIDE 0.9% FLUSH 10 ML FLUSH IV FLUSH SCH (09:00)
[2018-02-03 11:30] VITALS: BP 110/65; PULSE 63; RESP 18; TEMP 97.9; O2SAT 97
[2018-02-03 15:40] VITALS: BP 105/65; PULSE 63; RESP 18; TEMP 98.2; O2SAT 97
== END 2018-02-03 21:34 | disposition home or self-care (01) | DRG 777 ==
LOC: NEPC 21:28 → NEDA 23:00 → N06A 01-30 02:46
PROVIDERS: ADMIT Obstetrics & Gynecology; ATTEND Obstetrics & Gynecology
PROC: 10T20ZZ Resection of Products of Conception, Ectopic, Open Approach (ICD-10-PCS; 2018-01-29)
PROC: 0DBU0ZZ Excision of Omentum, Open Approach (ICD-10-PCS; 2018-01-29)
PROC: 0DN80ZZ Release Small Intestine, Open Approach (ICD-10-PCS; 2018-01-29)
PROC: 0UN90ZZ Release Uterus, Open Approach (ICD-10-PCS; 2018-01-29)
PROC: 30233N1 Transfusion of Nonautologous Red Blood Cells into Peripheral Vein, Percutaneous Approach (ICD-10-PCS; 2018-01-29)
PROC: 05HM33Z Insertion of Infusion Device into Right Internal Jugular Vein, Percutaneous Approach (ICD-10-PCS; 2018-01-29)
PROC: 0UB60ZZ Excision of Left Fallopian Tube, Open Approach (ICD-10-PCS; principal; 2018-01-29 23:23)
DX: O00.102 Left tubal pregnancy without intrauterine pregnancy (principal); O08.3 Shock following ectopic and molar pregnancy; K66.0 Peritoneal adhesions (postprocedural) (postinfection); E86.1 Hypovolemia; Z53.31 Laparoscopic surgical procedure converted to open procedure; Z98.891 History of uterine scar from previous surgery
CPT/HCPCS: 36430; 36556; 71045; 80053; 84702; 85025; 86850; 86900; 86901; 86920; 88305; 96361; 96374; J0131; J0330; J0690; J1100; J1170; J1885; J2060; J2370; J2405; J2710; J3010; J7030; J7120; P9016